=== PATIENT | male | born 2005 | race Caucasian/White ===

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

== ENCOUNTER 2025-02-13 09:27 | Emergency (ER) | payer BC, SELFPAY ==
--- NOTE | 2025-02-13 09:30 | ED.URI ---
HPI - URI/Sore Throat General Chief Complaint: Upper Respiratory Infection Stated Complaint: left side throat pain Time Seen by Provider: 02/13/25 09:30 Source: patient Mode of arrival: ambulatory Limitations: no limitations History of Present Illness HPI Narrative: Akbar is 19-year-old male patient presenting to the clinic today with complaints of sore throat x2 days. He reports pain is worse on the left side. Thought he saw some white exudate to the left tonsil. Denies any fevers, chills, body aches. Denies any URI symptoms. No chest pain or shortness of breath. No exposure to strep or mono. Related Data Home Medications Medication Instructions Recorded Confirmed Last Taken Type insulin aspart U-100 100 unit/mL 02/13/25 Unknown History subcutaneous solution (Novolog U-100 Insulin aspart) Allergies Allergy/AdvReac Type Severity Reaction Status Date / Time No Known Allergies Allergy Verified 02/13/25 09:28 Review of Systems Review of Systems: Pertinent positives per HPI. Patient denies any fever, chills, rash, headache, visual changes, dizziness, cough, shortness of breath, chest pain, palpitations, nausea, vomiting, diarrhea, constipation, abdominal pain, or any urinary issues. PMFSH Past Medical History Medical History Type 1 diabetes mellitus Surgical History Surgical History No significant past surgical history Social History Social History Smoking status: Never smoker Alcohol intake: never Substance use: never Living arrangements: with family Occupation/Education: student Comments At the time of my signature, I reviewed and agree with the nursing past medical, surgical, social, and family history. There is no relevant family history pertinent to the patient complaint. Exam Narrative: General: Well-developed, well nourished, in no apparent distress Head: Normocephalic, atraumatic Eyes: Pupils equally round and reactive to light bilaterally, EOM intact, sclera and conjunctive clear, no discharge, lids normal Ears: TMs intact and clear, ear canals clear, no drainage, grossly hearing normal. Nose: Nares patent, no discharge, no inflammation, no sinus tenderness. Mouth: Oral pharynx mildly red without lesions or masses, good dentition, MMM. Neck: Supple, trachea midline, no enlargement of anterior or posterior cervical nodes, no thyroid masses or goiter palpable. Cardio: Regular rate and rhythm, s1 and s2 normal, no murmur appreciated. Resp: Clear to auscultation bilaterally, no rhonchi, rales, wheezing or rubs Course Course Emergency Course: Portions of this record may have been created with voice recognition software. Level of Care: Express Care Visit Vital Signs Vital signs: Vital Signs Temperature 36.6 C 02/13/25 09:40 Pulse Rate 80 02/13/25 09:40 Respiratory Rate 18 02/13/25 09:40 Blood Pressure 120/75 02/13/25 09:40 Pulse Oximetry 100 02/13/25 09:40 Oxygen Delivery Room Air 02/13/25 09:40 Temperature 36.6 C 02/13/25 09:40 Pulse Rate 80 02/13/25 09:40 Respiratory Rate 18 02/13/25 09:40 Blood Pressure 120/75 02/13/25 09:40 Pulse Oximetry 100 02/13/25 09:40 Oxygen Delivery Room Air 02/13/25 09:40 Vital signs reviewed MDM - URI/Sore Throat MDM Narrative Medical decision making narrative: At the time of visit patient is resting comfortably on the exam table. Patient appears to be nontoxic. Labs: Strep test was negative in the clinic today. We will send strep for culture. Plan: I suspect patient has viral pharyngitis. Supportive measures were discussed with the patient and they voiced understanding discharge instructions and agrees to treatment plan. Return precautions reviewed Differential Diagnosis Differential diagnosis: Likely upper respiratory infection, otitis media, sinusitis, viral infection, bronchitis, influenza, pharyngitis and other (COVID) Lab Data Labs: Lab Results 02/13/25 Range/Units 09:46 POC Grp A Strep Screen Negative (Negative) Discharge Plan Discharge Clinical Impression: Pharyngitis Qualifiers: Pharyngitis/tonsillitis etiology: unspecified etiology Qualified Code(s): J02.9 - Acute pharyngitis, unspecified Patient Disposition: Home Condition: Stable Instructions: Antibiotic Form, Pharyngitis (ED) Additional Instructions: Strep test was negative in the clinic today. We will send strep for culture if this comes back positive we will contact him place you on antibiotics at that time. Increase fluids and stay well hydrated Tylenol/motrin for pain/fever Flonase and OTC antihistamines as directed Vicks vapor rub to open sinuses Sinus rinses for congestion Cepacol spray, cough drops, throat lozenges, warm tea with honey/lemon, gargle salt water to soothe throat BRAT diet for diarrhea Clear liquids x 24 hours then advance as tolerated for nausea/vomiting Go to the ED if you develop a worsening in your condition- high fever not controlled by Tylenol or Motrin, dehydration, weakness, lethargy, shortness of breath, or chest pain. Follow up with your PCP in 3-5 days if symptoms persist. Patient Language: Amharic Prescriptions: No Action insulin aspart U-100 [Novolog U-100 Insulin aspart] 100 unit/mL solution Follow-up/Referrals: UNKNOWN,DOCTOR [Non-Staff] - Time of Disposition: 09:48 Quality NIHSS Nursing Documentation ED NIHSS nursing documentation: reviewed/agree
--- OUTSIDE RECORDS SUMMARY | 2025-02-13 09:30 | XMS_ITS | Clinical Summary ---
Author Organization [facility] Address [address] [place] [address] Care Team Providers Care Aerophysics Engineer Name Role Phone Mireya Chauhan MD Primary Care Provid er Mireya Chauhan MD Unavailable [phone] Allergies No known active allergies Medications pen needle, diabetic (BD ULTRA-FINE SHORT PEN NEEDLE) 31 gauge x 5/16 needle Use to inject insulin 4-6 times per day 200 each 9 03/19/20 18 Active acetone, urine, test strip by in vitro route. 07/24/20 15 Active insulin glargine (insulin glargine) 100 unit/mL (3 mL) pen for injection 08/09/20 15 Active glucagon 1 mg kit administer 1mg IM for severe hypoglycemia at home and at school. 2 kit 2 06/22/20 19 Active lancets (Accu-Chek FastClix Lancing Dev) misc Accu Chek FastClix Lancets for home glucose monitoring 200 each 6 09/20/20 19 Active clindamycin (CLEOCIN) 300 mg capsule Take 1 capsule (300 mg total) by mouth 2 (two) times a day 14 capsule 12/21/19 21 Active Additional Information Patient not taking.Reported on 08/24/2024 blood-glucose meter misc Use to check blood sugar 4-6 times per day. - ONE TOUCH VERIO 1 each 07/03/20 23 Active insulin syringe-needle U-100 0.3 mL 31 gauge x 5/16 syringeIndication s:Type 1 diabetes mellitus without complication (HCC) Use to inject insulin 4-6 times per day 200 each 11 09/01/20 24 Active Baqsimi 3 mg/actuation spray,non-aerosol Indications:Type 1 diabetes mellitus without complication (HCC) Administer 1 spray (3 mg total) into one nostril as needed (for severe hypoglycemia or unresponsiveness ) 2 each 3 09/01/20 24 Active insulin aspart (NovoLOG) 100 unit/mL vial for injectionIndicati ons:Type 1 diabetes mellitus with hyperglycemia (HCC) USE VIA INSULIN PUMP. MAXIMUM DAILY DOSE IS 120 UNITS 120 mL 1 09/01/20 24 Active OneTouch Verio test strips stripIndications: Type 1 diabetes mellitus without complication (HCC) Use as directed to test blood sugar 8-10 times daily. 300 each 11 09/01/20 24 Active Dexcom G7 Sensor device Active Active Problems Problem Noted Date Diagnosed Date Uses self-applied continuous glucose monitoring device 08/18/2023 Tslim with control IQ 03/19/2019 Nondisplaced fracture of pro ximal phalanx of right great toe, initial encounter for closed fracture 09/18/2018 DM type 1 (diabetes mellitus, type 1) 08/23/2015 Encounters Date Type Department Care Team Description 01/31/2025 Telephone [facility] Diabetes and Endocrinology [address] [place] [id number] Carole Summers MD SN[facility] NPT ENDOCRINOLOGY RECORDS 01/26/2025 Telephone [facility] Pediatric Endocrinology [facility] [address] [place] [address] Nisreen Polo Chart notes 01/20/2025 Telephone [facility] Pediatric Endocrinology [facility] [address]nd [place] [address] Namita Urrutia lab order 01/07/2025 Patient Self-Triage [facility] [address] [place] [address] Mychart, Generic Provider from Last 3 Months Immunizations Immunization Administration Dates Next Due DTaP 5 Pertussis 2009, 7,2005,09/24,2005 HPV9 11/12/2017,04/29/2017 Hep A, Pediatric 11/17/2006,05/16/2006 Hep B, Adolescent or Pediatric 02/19/2006,2004,2005 Hib (PRP-T) 08/11/2006, 6,2005,07/15 IPV 05/03/2010, 6,2005,07/15 Influenza, Live, Intranasal, Quadrivalent 06/30/2015 Influenza, Live, Trivalent, Intranasal 1 ,07/18/2011,09/05/2010,08/08 Influenza, Quadrivalent, Spl it, Pediatric, Preservative Free, Intramuscular 10/04/2019 Influenza, Quadrivalent, Spl it, Preservative Free, Intramuscular 07/10/2022,07/09/2021,08/30/2020,09/20,07/08/2018 Influenza, Trivalent, IM (MDV) 9,07/04/2007,08/27/2006,07/08 Influenza, Trivalent, Preser vative Free, Intramuscular 10/08/2016 MMR 05/03/2010,05/16/2006 Meningococcal MCV4P (Menactra) 06/09/2021,2016 Pneumococcal Conjugate PCV 13 05/16/2006 ,2005,2005,07/15 Tdap 02/13/2016 Varicella 2009,08/11/2006 Medical History Medical History Date Comments Other abnormal glucose Elevated hemoglobin A1c - (Added by TW Conv) Family History Medical History Relation Name Comments Diabetes type I Brother Family histo ry of type 1 diabetes mellitus - (Added by TW Conv) No Known Problems Father No Known Problems Mother Relation Name Status Comments Brother Father Alive Mother Alive Social History Tobacco Use Types Packs/Day Years Used Date Smoking Tobacco: Never Smokeless Tobacco: Never Tobacco Cessation:Counseling Given: Not Answered Alcohol Use Standard Drinks/Week Comments Defer 0 (1 standard drink = 0.6 oz pur e alcohol) PHQ-2 Answer Date Recorded PHQ-2 TOTAL SCORE 0 08/25/2024 Sex and Gender Information Value Date Recorded Sex Assigned at Not on file Legal Sex Male 6:52 AM TRAIN SYSTEM OPERATOR Gender Identity Not on file Sexual Orientation Not on file Obstetrics History Growth Chart Information Age Height Weight [id number] th Percentile BMI Percentile Head Circum Head Circum Percentile Date 19 years 189.7 cm (6' 2.69 ) 88.7 kg (195 lb 8.8 oz) 72.39%* 2023 18 years 189.3 cm (6' 2.53 ) 82.9 kg (182 lb 12.2 oz) 58.91%* 2023 18 years 189.5 cm (6' 2.61 ) 84.5 kg (186 lb 4.6 oz) 65.78%* 2023 18 years 188.5 cm (6' 2.21 ) 80.9 kg (178 lb 4.8 oz) 59.43%* 2022 17 years 188.1 cm (6' 2.06 ) 81.8 kg (180 lb 4.8 oz) 66.12%* 2022 17 years 186.6 cm (6' 1.47 ) 85.4 kg (188 lb 4.8 oz) 79.87%* 2022 17 years 187.3 cm (6' 1.74 ) 82.2 kg (181 lb 4.8 oz) 72.42%* 2022 17 years 186.9 cm (6' 1.58 ) 78.4 kg (172 lb 12.8 oz) 64.34%* 2021 16 years 186 cm (6' 1.23 ) 74.3 kg (163 lb 11.2 oz) 54.42%* 2021 16 years 185 cm (6' 0.84 ) 74.2 kg (163 lb 9.6 oz) 59.69%* 2021 16 years 184.1 cm (6' 0.48 ) 74.9 kg (165 lb 1.6 oz) 66.52%* 2021 16 years 184 cm (6' 0.44 ) 71.2 kg (156 lb 14.4 oz) 55.41%* 2020 15 years 180.3 cm (5' 11 ) 72.3 kg (159 lb 6.3 oz) 72.46%* 2020 15 years 177.8 cm (5' 10 ) 68.2 kg (150 lb 6.4 oz) 67.10%* 2020 15 years 179 cm (5' 10.47 ) 65.6 kg (144 lb 9.6 oz) 56.19%* 2019 15 years 177.2 cm (5' 9.76 ) 62.7 kg (138 lb 3.2 oz) 51.54%* 2019 14 years 170.5 cm (5' 7.13 ) 56.8 kg (125 lb 3.5 oz) 52.52%* 2018 14 years 168.5 cm (5' 6.34 ) 56.6 kg (124 lb 12.5 oz) 60.46%* 2018 13 years 165.1 cm (5' 5 ) 55.4 kg (122 lb 2.2 oz) 67.54%* 2018 13 years 161.5 cm (5' 3.58 ) 50.4 kg (111 lb 1.8 oz) 58.91%* 2018 13 years 158 cm (5' 2.21 ) 48.1 kg (106 lb 0.7 oz) 60.79%* 2017 12 years 157.5 cm (5' 2.01 ) 45.8 kg (100 lb 15.5 oz) 51.16%* 2017 12 years 155 cm (5' 1.02 ) 45 kg (99 lb 3.3 oz) 57.86%* 2017 12 years 155 cm (5' 1.02 ) 43.8 kg (96 lb 9 oz) 52.67%* 2017 12 years 156 cm (5' 1.42 ) 44.9 kg (98 lb 15.8 oz) 57.59%* 2016 12 years 153.6 cm (5' 0.47 ) 44.4 kg (97 lb 14.2 oz) 63.51%* 2016 11 years 151.7 cm (4' 11.72 ) 44.6 kg (98 lb 5.2 oz) 73.17%* 2016 11 years 149.9 cm (4' 11.02 ) 42.8 kg (94 lb 5.7 oz) 71.41%* 2016 11 years 147.7 cm (4' 10.15 ) 39.8 kg (87 lb 11.9 oz) 63.29%* 2016 11 years 146.2 cm (4' 9.56 ) 37.1 kg (81 lb 12.7 oz) 52.34%* 2015 10 years 145.7 cm (4' 9.36 ) 34.4 kg (75 lb 13.4 oz) 32.28%* 2015 10 years 144 cm (4' 8.69 ) 35.3 kg (77 lb 13.2 oz) 51.96%* 2015 10 years 142 cm (4' 7.91 ) 32.3 kg (71 lb 3.3 oz) 34.50%* 2014 10 years 144 cm (4' 8.69 ) 32 kg (70 lb 8.8 oz) 22.86%* 2014 * [facility] (Boys, 2-20 Years) Last Filed Vital Signs Vital Sign Reading Time Taken Comments Blood Pressure 130/90 08/24/2024 12:46 PM TRAIN SYSTEM OPERATOR Do ne 2X Pulse 80 08/24/2024 12:46 PM TRAIN SYSTEM OPERATOR Temperature 36.1 C (97 F) 04/16/2024 11:38 AM CDT Respiratory Rate 16 08/24/2024 12:46 PM TRAIN SYSTEM OPERATOR Oxygen Saturation 97% 04/16/2024 11:38 AM CDT Inhaled Oxygen Concentration - - Weight 88.7 kg (195 lb 8.8 oz) 08/24/2024 12:46 PM TRAIN SYSTEM OPERATOR Height 189.7 cm (6' 2.69 ) 08/24/2024 12:[address] Body Mass Index 24.65 08/24/2024 12:46 PM TRAIN SYSTEM OPERATOR Plan of Treatment Health Maintenance Due Date Last Done Comments Hepatitis C Screening 2005 eGFR 2005 Pneumococcal vaccine <65 (1 of 1 - PPSV23) 2011 05/16/2006, 2005, 2005, Additional history exists Meningococcal B Vaccine (1 o f 2 - Standard) 2021 Dilated Eye Exam 10/07/2021 10/07/2020 Regular Well Visit/Exam 18-64 2023 Covid-19 Vaccine (3 - 2023-2 5 season) 2024 06/10/2021, 05/11/2021 Hemoglobin A1C 02/21/2025 08/24/2024, 07/05/2024, 12/17/2023, Additional history exists Influenza Vaccine (Season Ended) 2025 07/10/2022, 07/09/2021, 08/30/2020, Additional history exists Albumin Creatinine Ratio, Urine 08/24/2025 08/24/2024, 01/15/2023, 06/25/2022 Depression Screening 08/24/2025 08/24/2024, 12/17/2023, 08/18/2023, Additional history exists Foot Exam 08/24/2025 08/24/2024, 11/28, 08/18/2023, Additional history exists Lipid Panel 08/24/2025 08/24/2024, 05/31, 09/20/2019, Additional history exists DTaP/Tdap/Td Vaccine (7 - Td or Tdap) 02/12/2026 02/13/2016, 2009, 11/17/2006, Additional history exists TSH Level 08/24/2026 08/24/2024, 05/31, 09/20/2019, Additional history exists Hepatitis B Screening Completed 02/19/2006 , 2005, 2005 Varicella Vaccines Completed 2009, 08/11/2006 HPV Vaccines Completed 11/12/2017, 04/29/2017 Meningococcal Vaccine Completed 06/09/2021, 017 Procedures Procedure Name Priority Date/Time Associated Diagnosis Comments ALBUMIN CREATININE RATIO, URINE Routine 08/24/2024 3:29 PM TRAIN SYSTEM OPERATOR Type 1 diabetes mellitus with hyperglycemia (HCC) LIPID PANEL Add On 08/24/2024 3:17 PM TRAIN SYSTEM OPERATOR THYROID FUNCTION CASCADE Add On 08/24/2024 3:17 PM TRAIN SYSTEM OPERATOR POCT HEMOGLOBIN A1C Routine 08/24/2024 1 2:55 PM TRAIN SYSTEM OPERATOR Type 1 diabetes mellitus with hyperglycemia (HCC) from Last 3 Months or Most Recently Relevant to Health Maintenance Results * Albumin Creatinine Ratio, Urine (08/24/2024 3:29 PM TRAIN SYSTEM OPERATOR) Albumin Ur 13.4 mg/L Comment: Interpretive Data No reference range established. Current interpretive data was last revised 2019. Creatinine Ur 145.0 mg/dL [facility] Comment: Interpretive Data No reference range established. Current interpretive data was last revised 2019. Albumin Creatinine Ratio, Ur 9 1 - 29 mg/g [facility] Urine 08/24/2024 3:29 PM TRAIN SYSTEM OPERATOR 08/24/2024 3:37 PM TRAIN SYSTEM OPERATOR Jennie Feliciano MD LAB URINE ORDERAB LES Final Result Performing Organization Address City/Va Hospital/ZIP Co de Phone Number [facility] [place] [address] * Thyroid Function [place] (08/24/2024 3:17 PM TRAIN SYSTEM OPERATOR) Pathologist [facility] TSH 0.80 0.30 - 4.20 mcIUnit/mL Blood 08/24/2024 3:17 PM TRAIN SYSTEM OPERATOR 08/25/2024 8:17 AM TRAIN SYSTEM OPERATOR Jennie Feliciano MD LAB BLOOD ORDERAB LES Final Result Performing Organization Address City/[facility] Hospital/[facility] [place] [address] * (ABNORMAL) Lipid panel (08/24/2024 3:17 PM TRAIN SYSTEM OPERATOR) Cholesterol 147 30 - 199 mg/dL Comment: Interpretive Data Ages < or = 19 years Acceptable: <170 mg/dL Borderline high: 170-199 mg/dL High: >or= 200 mg/dL Ages > or = 20 years Desirable: <200 mg/dL Borderline high: 200-239 mg/dL High: >or= 240 mg/dL Literature References: 1. Expert Panel on Integrated Guidelines for Cardiovascular Health and Risk Reduction in Children and Adolescents. Pediatrics 2011;128:S213 2. NCEP Expert Panel. Circulation 2004;110:227 Current Interpretive Data was last revised on 2018. Triglycerides 223(H) <=129 mg/dL [facility] Comment: Interpretive Data Ages < or = 9 years Acceptable: <75 mg/dL Borderline high: 75-99 mg/dL High: >or= 100 mg/dL Ages 10 to 20 years Acceptable: <90 mg/dL Borderline high: 90-129 mg/dL High: >or= 130 mg/dL Ages > or = 20 years Desirable: <150 mg/dL Borderline high: 150-199 mg/dL High: 200-499 mg/dL Very high: >or= 499 mg/dL Literature References: 1. Expert Panel on Integrated Guidelines for Cardiovascular Health and Risk Reduction in Children and Adolescents. Pediatrics 2011;128:S213 2. NCEP Expert Panel. Circulation 2004;110:227 Current Interpretive Data was last revised on 2018. HDL 38(L) >=45 mg/dL [facility] Comment: Interpretive Data Ages < or = 19 years Acceptable: >45 mg/dL Borderline low: 40-45 mg/dL Low: <40 mg/dL Ages > or = 20 years Desirable: >or= 60 mg/dL Low: <40 mg/dL Literature References: 1. Expert Panel on Integrated Guidelines for Cardiovascular Health and Risk Reduction in Children and Adolescents. Pediatrics 2011;128:S213 2. NCEP Expert Panel. Circulation 2004;110:227 Current Interpretive Data was last revised on 2018. LDL, calculated 72 <=129 mg/dL [facility] Comment: Interpretive Data Ages < or = 19 years Acceptable: <110 mg/dL Borderline high: 110-129 mg/dL High: >or= 130 mg/dL Ages > or = 20 years Optimal: <100 mg/dL Near optimal: 100-129 mg/dL Borderline high: 130-159 mg/dL High: >160 mg/dL Calculated using the Hatch LDL-C estimating equation. This equation was implemented on 2024. Prior to this date LDL-C was estimated using the Friedewald equation. Literature References: 1. Expert Panel on Integrated Guidelines for Cardiovascular Health and Risk Reduction in Children and Adolescents. Pediatrics 2011;128:S213 2. NCEP Expert Panel. Circulation 2004;110:227 3. Holden M et al. RIGOBERTO Cardiol. 2020 January 27;5(5):540-548. doi: 10.1001/[email or web address] Current Interpretive Data was last revised on 2024. Non-HDL Cholesterol 109 mg/dL [facility] Comment: Interpretive Data Ages < or = 19 years Acceptable: <120 mg/dL Borderline high: 120-144 mg/dL High: >145 mg/dL Ages > or = 20 years When triglycerides are >200 mg/dL, Non-HDL cholesterol is a secondary target of therapy with treatment goals that are 30 mg/dL greater than the LDL cholesterol target. Literature References: 1. Expert Panel on Integrated Guidelines for Cardiovascular Health and Risk Reduction in Children and Adolescents. Pediatrics 2011;128:S213 2. NCEP Expert Panel. Circulation 2004;110:227 Current Interpretive Data was last revised on 2018. Chol/HDL ratio 4 [facility] Blood 08/24/2024 3:17 PM TRAIN SYSTEM OPERATOR 08/25/2024 8:17 AM TRAIN SYSTEM OPERATOR us Jennie Feliciano MD LAB BLOOD ORDERAB LES Final Result [facility] [place] [address] * POCT hemoglobin A1c (08/24/2024 12:55 PM TRAIN SYSTEM OPERATOR) Hemoglobin A1C, POC 7.7 4.0 - 5.6 % Blood 08/24/2024 12:5 5 PM TRAIN SYSTEM OPERATOR us Jennie Feliciano MD POINT OF CARE ROLAND T ORDERABLES Final Result from Last 3 Months or Most Recently Relevant to Health Maintenance Insurance [facility] [employer] [place] [facility] CHOICE PLUS [place] [id number] Care Teams Aerophysics Engineer Relationship Specialty Start Date End Date Mireya Chauhan MD [address] [place] [address] PCP - General 09/20/19 Mireya Chauhan MD [address] [place] [address] 09/20/19
--- OUTSIDE RECORDS SUMMARY | 2025-02-13 09:30 | XMS_ITS | Clinical Summary ---
Author Organization [facility] Address [facility] [place] [address] Care Team Providers Care Bed Machine Operator Name Role Phone Mireya Kuhn MD Primary Care Provider Social History Tobacco Use Types Packs/Day Years Used Date Smoking Tobacco: Never Assessed Sex and Gender Information Value Date Recorded Sex Assigned at Not on file Legal Sex Male 8:24 PM CDT Gender Identity Not on file Sexual Orientation Not on file Last Filed Vital Signs Vital Sign Reading Time Taken Comments Blood Pressure - - Pulse 75 11/23/2012 1:54 PM POULTRY FARMER EGG Temperature - - Respiratory Rate - - Oxygen Saturation - - Inhaled Oxygen Concentration - - Weight 24.9 kg (55 lb) 11/23/2012 1:54 PM POULTRY FARMER EGG Height - - Body Mass Index - - Plan of Treatment Health Maintenance Due Date Last Done Comments Annual Physical 2008 Meningococcal B Vaccine (1 of 2 - Standard) 2021 Hepatitis C 2023 COVID-19 Vaccine ( season) 2024 06/10/2021, 05/11/2021 DTaP, Tdap and Td Vaccines (7 - Td or Tdap) 02/12/2026 02/13/2016, 2009, 11/17/2006, Additional history exists Hepatitis B Vaccines Completed 02/19/2006, 2005, 2005 HPV Vaccines Completed 11/12/2017, 04/29/2017 Pneumococcal Vaccine: Pediatrics (0 to 5 Years) and At-Risk Patients (6 to 49 Years) Completed 10/04/2019, 05/16/2006, 2005, Additional history exists Meningococcal Vaccine Completed 06/09/2021, 017 RSV Immunizations Under 20 Months Aged Out No longer eligible based on patient's age to complete this topic Insurance [facility] Care Teams Bed Machine Operator Relationship Specialty Start Date End Date Mireya Kuhn MD [facility] [place] [address] PCP - General PEDIATRICS 06/25/22
--- OUTSIDE RECORDS SUMMARY | 2025-02-13 09:30 | XMS_ITS | Referral Summary ---
Author Organization [facility] Address [address] [place] [address] Care Team Providers Care Equipment Maintenance Tech Name Role Phone Mireya Chauhan MD Primary Care Provid er Mireya Chauhan MD Unavailable [phone] Encounters Date Type Department Care Team Description 01/31/2025 Telephone [facility] Diabetes and Endocrinology [address] [place] [id number] Carole Summers MD [facility] NPT ENDOCRINOLOGY RECORDS 01/26/2025 Telephone [facility] Pediatric Endocrinology [address] [place] [address] Nisreen Polo Chart notes 01/20/2025 Telephone [facility] Pediatric Endocrinology [address] [place] [address] Namita Urrutia lab order 01/07/2025 Patient Self-Triage [facility] [address] [place] [address] Mychart, Generic Provider from Last 3 Months Allergies No known active allergies Medications pen [...] type 1 (diabetes mellitus, type 1) 08/23/2015 Immunizations Immunization Administration Dates Next Due DTaP [...] 13 05/16/2006 ,2005,2005,07/15 Tdap 02/13/2016 Varicella 2009,08/11/2006 Social History Tobacco Use Types Packs/Day Years Used Date Smoking Tobacco: Never Smokeless Tobacco: Never Tobacco Cessation:Counseling Given: Not Answered Alcohol Use Standard Drinks/Week Comments Defer 0 (1 standard drink = 0.6 oz pur e alcohol) PHQ-2 Answer Date Recorded PHQ-2 TOTAL SCORE 0 08/25/2024 Sex and Gender Information Value Date Recorded Sex Assigned at Not on file Legal Sex Male 6:52 AM BUS SYSTEM OPERATOR Gender Identity Not on file Sexual Orientation Not on file Last Filed Vital Signs Vital Sign Reading Time Taken Comments Blood Pressure 130/90 08/24/2024 12:46 PM BUS SYSTEM OPERATOR Do ne 2X Pulse 80 08/24/2024 12:46 PM BUS SYSTEM OPERATOR Temperature 36.1 C (97 F) 04/16/2024 11:38 AM CDT Respiratory Rate 16 08/24/2024 12:46 PM BUS SYSTEM OPERATOR Oxygen Saturation 97% 04/16/2024 11:38 AM CDT Inhaled Oxygen Concentration - - Weight 88.7 kg (195 lb 8.8 oz) 08/24/2024 12:46 PM BUS SYSTEM OPERATOR Height 189.7 cm (6' 2.69 ) 08/24/2024 12:[address] Body Mass Index 24.65 08/24/2024 12:46 PM BUS SYSTEM OPERATOR Plan of Treatment Not on file Procedures Procedure Name Priority Date/Time Associated Diagnosis Comments ALBUMIN CREATININE RATIO, URINE Routine 08/24/2024 3:29 PM BUS SYSTEM OPERATOR Type 1 diabetes mellitus with hyperglycemia (HCC) LIPID PANEL Add On 08/24/2024 3:17 PM BUS SYSTEM OPERATOR THYROID FUNCTION CASCADE Add On 08/24/2024 3:17 PM BUS SYSTEM OPERATOR POCT HEMOGLOBIN A1C Routine 08/24/2024 1 2:55 PM BUS SYSTEM OPERATOR Type 1 diabetes mellitus with hyperglycemia (HCC) from Last 3 Months or Most Recently Relevant to Health Maintenance Results * Albumin Creatinine Ratio, Urine (08/24/2024 3:29 PM BUS SYSTEM OPERATOR) Albumin Ur 13.4 mg/L Comment: Interpretive Data No reference range established. Current interpretive data was last revised 2019. Creatinine Ur 145.0 mg/dL [facility] Comment: Interpretive Data No reference range established. Current interpretive data was last revised 2019. Albumin Creatinine Ratio, Ur 9 1 - 29 mg/g [facility] Urine 08/24/2024 3:29 PM BUS SYSTEM OPERATOR 08/24/2024 3:37 PM BUS SYSTEM OPERATOR us Jennie Feliciano MD LAB URINE ORDERAB LES Final Result [facility] [place] [address] * Thyroid Function [place] (08/24/2024 3:17 PM BUS SYSTEM OPERATOR) TSH 0.80 0.30 - 4.20 mcIUnit/mL Blood 08/24/2024 3:17 PM BUS SYSTEM OPERATOR 08/25/2024 8:17 AM BUS SYSTEM OPERATOR Jennie Feliciano MD LAB BLOOD ORDERAB LES Final Result [facility] Department [place] [address] * (ABNORMAL) Lipid panel (08/24/2024 3:17 PM BUS SYSTEM OPERATOR) Cholesterol 147 30 - 199 [...] revised on 2018. Triglycerides 223(H) <=129 mg/dL [facility] Comment: Interpretive Data Ages < or = [...] revised on 2018. HDL 38(L) >=45 mg/dL [facility] Comment: Interpretive Data Ages < or = [...] on 2018. LDL, calculated 72 <=129 mg/dL [facility] Comment: Interpretive Data Ages < or = 19 years Acceptable: <110 mg/dL Borderline high: 110-129 mg/dL High: >or= 130 mg/dL Ages > or = 20 years Optimal: <100 mg/dL Near optimal: 100-129 mg/dL Borderline high: 130-159 mg/dL High: >160 mg/dL Calculated using the Holden LDL-C estimating equation. This equation was implemented on 2024. Prior to this date LDL-C was estimated using the Friedewald equation. Literature References: 1. Expert Panel on Integrated Guidelines for Cardiovascular Health and Risk Reduction in Children and Adolescents. Pediatrics 2011;128:S213 2. NCEP Expert Panel. Circulation 2004;110:227 3. Holden Sargent et al. RIGOBERTO Cardiol. 2019January 27;5(5):540-548. doi: 10.1001/jamacardio.2020.0013 Current Interpretive Data was last revised on 2024. Non-HDL Cholesterol 109 mg/dL [facility] Comment: Interpretive Data Ages < or = [...] last revised on 2018. Chol/HDL ratio 4 [facility] Blood 08/24/2024 3:17 PM BUS SYSTEM OPERATOR 08/25/2024 8:17 AM BUS SYSTEM OPERATOR us Jennie Feliciano MD LAB BLOOD ORDERAB LES Final Result [facility] [place] [address] * POCT hemoglobin A1c (08/24/2024 12:55 PM BUS SYSTEM OPERATOR) Hemoglobin A1C, POC 7.7 4.0 - 5.6 % Blood 08/24/2024 12:5 5 PM BUS SYSTEM OPERATOR us Jennie Feliciano MD POINT OF CARE ROLAND T ORDERABLES Final Result from Last 3 Months or Most Recently Relevant to Health Maintenance [place] [employer] [place] [employer] [place] [facility] CHOICE PLUS Care Teams Equipment Maintenance Tech Relationship Specialty Start Date End Date Mireya Chauhan MD [address] [place] [address] PCP - General 09/20/19 Mireya Chauhan MD [address] [place] [address] 09/20/19
--- OUTSIDE RECORDS SUMMARY | 2025-02-13 09:30 | XMS_ITS ---
Author Organization Unknown Medications Medication Instructions Effective Dates (start - sto p) Status - - Compl eted insulin lispro 100 UNT/ML Injectable Solution [Humalog] - Complet ed - - Compl eted insulin lispro 100 UNT/ML Injectable Solution [Humalog] - Complet ed insulin lispro 100 UNT/ML Injectable Solution [Humalog] - Complet ed - - Compl eted insulin aspart, human 100 UN T/ML Injectable Solution [NovoLog] - Complet ed insulin aspart, human 100 UN T/ML Injectable Solution [NovoLog] - Complet ed insulin lispro 100 UNT/ML Injectable Solution [Humalog] - Complet ed insulin aspart, human 100 UN T/ML Injectable Solution [NovoLog] - Complet ed Patient Care team information Name Category Status Period Participants - - Proposed period not known -
[2025-02-13 09:40] VITALS: BP 120/75; PULSE 80; RESP 18; TEMP 36.6; O2SAT 100
[2025-02-13 09:48] LABS: EDSTREPNEGPOS1 Negative (Negative)
== END 2025-02-13 09:49 | disposition home or self-care (01) ==
PROVIDERS: Emergency Provider Nurse Practitioner Family; PCP Pediatrics
DX: J02.9 Acute pharyngitis, unspecified (principal); E10.9 Type 1 diabetes mellitus without complications
CPT/HCPCS: 87081; 87880; 99213; G0463